=== PATIENT | female | born 1990 | race American Indian/Alaskan Native ===

== ENCOUNTER 2018-05-04 20:38 | Emergency (ER) | payer SELFPAY ==
[2018-05-04 20:58] VITALS: BP 132/85
[2018-05-04] MEDS ORDERED: TYLENOL ONE (21:32)
[2018-05-04] MEDS ORDERED: TYLENOL PO ONE (21:34)
== END 2018-05-05 01:00 | disposition left against medical advice (07) ==
LOC: ED 20:38
DX: R51 Headache (principal); K08.89 Other specified disorders of teeth and supporting structures; H92.02 Otalgia, left ear; Z53.21 Procedure and treatment not carried out due to patient leaving prior to being seen by health care provider